=== PATIENT | female | born 1965 | race Caucasian/White ===

== ENCOUNTER → 2017-10-21 | Outpatient (CLI) | payer BC ==
[~2017-10-21] MED LIST: CELEXA 20MG20 MG/TAB PO
== END ==
LOC: MC.RAD 11:32
DX: Z12.31 Encounter for screening mammogram for malignant neoplasm of breast (principal)

== ENCOUNTER → 2020-07-05 | Outpatient (CLI) | payer BC | LOC: MC.RAD 08:45 | DX: Z12.31 Encounter for screening mammogram for malignant neoplasm of breast (principal) ==

== ENCOUNTER → 2022-06-21 | Outpatient (CLI) | payer BC | LOC: MC.RAD 09:00 | DX: Z12.31 Encounter for screening mammogram for malignant neoplasm of breast (principal) ==